=== PATIENT | female | born 1990 | race African-American/Black ===

== ENCOUNTER 2024-07-19 02:23 | Emergency (ER) | payer MEDICAID, OTHER ==
[~2024-07-19] VITALS: Ht 162.6 cm; Wt 59.0 kg
[~2024-07-19 02:23] MED LIST: CEFP200T14 MT; HYDR-4009 MT; IBUP-2029 MT; ONDA-239 PO; TAMS-11 MT
[2024-07-19 02:39] VITALS: O2SAT 100
[2024-07-19] MEDS: SODIUM CHLORIDE 0.9% 1,000 ML IV ONE (03:00)
[2024-07-19 03:07] LABS: BASOPHILS % 0.2 % (0.0-2.0); EOSINOPHILS % 1.4 % (0.0-5.0); HEMATOCRIT. 36.6 % (36.0-48.0); HEMOGLOBIN. 11.5 g/dL (12.0-16.0); LYMPHOCYTES % 35.2 % (20.0-50.0); MEAN CORPUSCULAR HEMOGLOBIN 27.8 pg (28.0-32.0); MEAN CORPUSCULAR HGB CONC 31.4 g/dL (31.0-37.0); MEAN CORPUSCULAR VOLUME 88.3 fL (81.0-99.0); MEAN PLATELET VOLUME 7.5 fl (7.4-10.4); MONOCYTES % 6.2 % (2.0-8.0); PLATELET 259 x1000/uL (130-400); RED BLOOD CELL COUNT 4.14 mill/uL (4.2-5.4); RED CELL DISTRIBUTION WIDTH 16.4 % (11.6-14.6); WHITE BLOOD COUNT 9.7 x1000/uL (4.5-11.0)
[2024-07-19 03:11] LABS: CHLORIDE 110 mEq/L (98-107); POTASSIUM 3.5 mEq/L (3.5-5.1); SODIUM 139 mEq/L (136-145)
[2024-07-19 03:12] LABS: CARBON DIOXIDE 22 mEq/L (21-32)
[2024-07-19 03:13] LABS: CALCIUM 8.6 mg/dL (8.7-10.4)
[2024-07-19 03:16] LABS: HCG SCREEN NEGATIVE
[2024-07-19 03:17] LABS: CREATININE 0.8 mg/dL (0.6-1.0); GLUCOSE 82 mg/dL (70-105)
[2024-07-19 03:18] LABS: UREA NITROGEN BLOOD 8 mg/dL (9-23)
[2024-07-19 03:30] VITALS: TEMP 36.66960
[2024-07-19] MEDS ORDERED: MORPHINE SULFATE 4 MG/ML INJ (FOR IV/IM USE) IV ONE (03:45)
[2024-07-19] MEDS: VALPROATE SODIUM 500 MG in SODIUM CHLORIDE 0.9% 100 ML IV STA (04:35)
[2024-07-19] MEDS: ONDANSETRON HCL 4MG/2ML INJ IV ONE (04:41)
[2024-07-19 05:48] VITALS: BP 101/55; PULSE 68; RESP 18; O2SAT 99
== END 2024-07-19 05:55 | disposition home or self-care (01) ==
LOC: ER 02:23
DX: R51.9 Headache, unspecified (principal); Z79.899 Other long term (current) drug therapy
CPT/HCPCS: 99285; 96365; 70450; 96361; 96375; 80048; 84703; 85025; 36415; J2405; J3490; J7050

== ENCOUNTER 2024-09-09 03:07 | Emergency (ER) | payer MEDICAID ==
[~2024-09-09] VITALS: Ht 152.4 cm; Wt 71.2 kg
[2024-09-09 03:21] VITALS: O2SAT 99
[2024-09-09 03:28] VITALS: BP 107/66; PULSE 80; RESP 17; TEMP 98.1; O2SAT 99
[2024-09-09] MEDS ORDERED: KETOROLAC 30MG/ML VIAL IV STA (04:23)
[2024-09-09] MEDS ORDERED: HYDROCODONE/ACETAMINOPHEN 5/325MG TABLET PO STA (04:23)
[2024-09-09] MEDS: SODIUM CHLORIDE 0.9% 1,000 ML IV ONE (04:30)
[2024-09-09 04:46] LABS: BASOPHILS % 0.4 % (0.0-2.0); EOSINOPHILS % 1.2 % (0.0-5.0); LYMPHOCYTES % 25.6 % (20.0-50.0); MEAN CORPUSCULAR HEMOGLOBIN 28.7 pg (28.0-32.0); MEAN CORPUSCULAR HGB CONC 32.4 g/dL (31.0-37.0); MEAN CORPUSCULAR VOLUME 88.8 fL (81.0-99.0); MEAN PLATELET VOLUME 7.5 fl (7.4-10.4); MONOCYTES % 4.7 % (2.0-8.0); NEUTROPHILS % 68.1 % (40.0-76.0); PLATELET 277 x1000/uL (130-400); RED BLOOD CELL COUNT 4.17 mill/uL (4.2-5.4); RED CELL DISTRIBUTION WIDTH 15.5 % (11.6-14.6); WHITE BLOOD COUNT 10.5 x1000/uL (4.5-11.0)
[2024-09-09 04:51] LABS: CHLORIDE 107 mEq/L (98-107); POTASSIUM 4.2 mEq/L (3.5-5.1); SODIUM 139 mEq/L (136-145)
[2024-09-09 04:52] LABS: CARBON DIOXIDE 26 mEq/L (21-32)
[2024-09-09 04:53] LABS: CALCIUM 8.1 mg/dL (8.7-10.4)
[2024-09-09 04:57] LABS: CREATININE 0.7 mg/dL (0.6-1.0); GLUCOSE 91 mg/dL (70-105)
[2024-09-09 04:58] LABS: UREA NITROGEN BLOOD 7 mg/dL (9-23)
[2024-09-09 04:59] LABS: ALANINE AMINOTRANSFERASE 10 IU/L (10-49); ASPARTATE AMINOTRANSFERASE 13 IU/L (<34)
[2024-09-09 05:00] LABS: BILIRUBIN DIRECT 0.1 mg/dL (<=3.0); BILIRUBIN TOTAL 0.4 mg/dL (0.1-1.0); PROTEIN TOTAL 6.7 g/dL (6.0-8.3)
[2024-09-09] MEDS ORDERED: HYDROCODONE/ACETAMINOPHEN 5/325MG TABLET PO NR (06:15)
[2024-09-09] MEDS ORDERED: KETOROLAC 30MG/ML VIAL IV NR (06:15)
[2024-09-09 06:28] LABS: CLARITY URINE CLOUDY (CLEAR); COLOR URINE YELLOW (YELLOW); GLUCOSE URINE NEGATIVE (NEGATIVE); KETONES URINE NEGATIVE (NEGATIVE); LEUKOCYTE ESTERASE URINE NEGATIVE (NEGATIVE); NITRITE URINE NEGATIVE (NEGATIVE); OCCULT BLOOD URINE NEGATIVE (NEGATIVE); PH URINE 6.5 (4.5-8.0); PROTEIN URINE NEGATIVE (NEGATIVE); SPECIFIC GRAVITY URINE 1.022 (1.005-1.030); UROBILINOGEN URINE 0.2 E.U./dL (0.2-1.0)
[2024-09-09] MEDS ORDERED: ACETAMINOPHEN 325MG TABLET PO SCH (07:15)
[2024-09-09] MEDS ORDERED: IBUPROFEN 800MG TABLET PO SCH (07:15)
[2024-09-09] MEDS ORDERED: TRAM50TA3 MT (07:18)
[2024-09-09] MEDS ORDERED: DICL75TA5 MT (07:18)
[2024-09-09 08:27] LABS: BACTERIA URINE TRACE; MUCUS URINE TRACE /lpf (< = 2+); SQUAMOUS EPITHELIAL CELL URINE 3+ /lpf (RARE/1+)
[2024-09-09 08:28] LABS: RBC URINE 0-2 /hpf (0-2); WBC URINE 0-2 /hpf (0-2)
== END 2024-09-09 07:30 | disposition home or self-care (01) ==
LOC: ER 04:51
DX: R10.9 Unspecified abdominal pain (principal); Z79.899 Other long term (current) drug therapy
CPT/HCPCS: 99284; 96360; 76770; 80076; 80048; 81003; 83690; 85025; 36415; J1885; J7030